=== PATIENT | female | born 1990 | race Caucasian/White ===

== ENCOUNTER 2019-04-09 23:58 | Emergency (ER) | payer MEDICAID ==
[~2019-04-09] VITALS: Ht 167.6 cm; Wt 156.8 kg
[2019-04-10 00:01] VITALS: Ht 167.6 cm; Wt 156.8 kg
[2019-04-10] MEDS ORDERED: AUGMENTIN 875-11 TAB PO (00:32)
[2019-04-10] MEDS ORDERED: FLUTICASONE PRO16 GM NASAL (00:32)
[2019-04-10 00:40] VITALS: BP 116/64
== END 2019-04-10 00:40 | disposition home or self-care (01) ==
LOC: D.ER 23:58
DX: J01.90 Acute sinusitis, unspecified (principal); F17.200 Nicotine dependence, unspecified, uncomplicated